=== PATIENT | male | born 1955 | race Caucasian/White ===

== ENCOUNTER 2020-12-11 00:56 | Day surgery (SDC) | payer OTHER, SELFPAY ==
[2020-11-30 15:02] VITALS: BMI 21.4
--- NOTE | 2020-12-08 14:28 | PM.HPGS ---
History of Present Illness History of Present Illness Consent: Risks, benefits, and alternatives have been discussed and questions answered. Patient agrees to proceed with procedure. Chief complaint: neoplasm screening Narrative: Obdulio Davenport is a 65 year old male Referred for colon cancer screening Review of Systems Review of Systems: All systems reviewed & are unremarkable except as noted in HPI and below PMFSH Past Medical History Medical History Hypercholesterolemia Family History Family History Father Hypertension Social History Social History Smoking status: Never smoker Alcohol intake: current Drinks per week: 6 Alcohol use details: BEER Living arrangements: with family Spiritual care concerns: No Meds Home Medications and Allergies Home Medications Medication Instructions Recorded Confirmed Type No Home Medications 03/03/19 12/11/20 History Allergies Allergy/AdvReac Type Severity Reaction Status Date / Time No Known Allergies Allergy Unknown Verified 12/11/20 07:42 Exam Resp: Auscultation: clear to auscultation bilaterally Cardio: Rate: regular rate Rhythm: regular rhythm GI: GI Palp: Yes Soft to palpation and No Tenderness to palpation present (GI) Assessment and Plan Assessment and plan (1) Colon cancer screening: Code(s): Z12.11 - Encounter for screening for malignant neoplasm of colon Status: Acute Assessment and Plan: Colonoscopy with possible biopsy or polypectomy or cautery or injection of substances.
--- NOTE | 2020-12-11 07:24 | WPDANESEPPF ---
Anes - Initial Pre Proc Eval Procedure: Operation Date: 12/11/20 08:30 Proposed Procedures p Screening Colonoscopy - Bishop Sepulveda MD Date/Time: 12/11/20 07:24 Surgeon: Bishop Sepulveda MD Pre Op Diagnosis: neoplasm screening Patient Data Age: 65 Gender: M Height: 1.78 m Weight: 68 kg Allergies Allergy/AdvReac Type Severity Reaction Status Date / Time No Known Allergies Allergy Unknown Verified 12/11/20 07:42 Home Medications Medication Instructions Recorded Confirmed Type No Home Medications 03/03/19 12/11/20 History Patient hx anesthesia problems: none Family hx anesthesia problems: none PMFSH Past Medical History Medical History (Updated 12/11/20 @ 07:24 by Seven Cuenca MD) Hypercholesterolemia Family History Family History Father Hypertension Social History Social History Smoking status: Never smoker Alcohol intake: current Drinks per week: 6 Alcohol use details: BEER Living arrangements: with family Spiritual care concerns: No Anes - Eval Final PreProcedure Day of Procedure 12/11/20 07:24 Patient weight: normal Heart: regular rate and rhythm Lungs: clear to auscultation and normal air movement Airway: Mallampati scale class II Neurological: alert and oriented Last oral intake: >/= 8 hours ASA classification: II Emergent: no Anesthetic plan: proceed Anesthesia type and monitoring: general GIVS Informed Consent: The patient's anesthetic plan and its attendant risks and benefits were discussed with the patient/family/POA. Questions were solicited and answers provided to the satisfaction of the patient/family/POA.
[2020-12-11 07:43] VITALS: BP 147/80; PULSE 63; RESP 14; TEMP 36.4; O2SAT 100; BMI 21.3
[2020-12-11] MEDS: LACTATED RINGERS 1,000 ML 150 ML IV CONT (07:47)
[2020-12-11 08:38] VITALS: BP 101/69; PULSE 70; RESP 16; O2SAT 100
[2020-12-11 08:48] VITALS: BP 113/74; PULSE 59; RESP 18; O2SAT 100
[2020-12-11 08:58] VITALS: BP 129/79; PULSE 60; RESP 18; O2SAT 100
[2020-12-11 09:08] VITALS: BP 136/85; PULSE 55
== END 2020-12-11 09:18 | disposition home or self-care (01) ==
PROVIDERS: PCP Internal Medicine; Visit Provider Internal Medicine Gastroenterology
PROC: 0DJD8ZZ Inspection of Lower Intestinal Tract, Via Natural or Artificial Opening Endoscopic (ICD-10-PCS; CPT 45378; principal; 2020-12-11 08:30)
DX: Z12.11 Encounter for screening for malignant neoplasm of colon (principal); E78.00 Pure hypercholesterolemia, unspecified
CPT/HCPCS: 45378; J2704; J7120

== ENCOUNTER 2022-05-28 09:33 | Outpatient (CLI) | payer OTHER, SELFPAY ==
--- NOTE | ~2022-05-28 | US_ITS ---
EXAMINATION: US thyroid DATE: 05/28/2022 10:13 INDICATION: Iodine deficiency related diffuse goiter. TECHNIQUE: Multiple ultrasound images of the thyroid were obtained. COMPARISON: None. FINDINGS: The right thyroid lobe measures 5.5 x 2.3 x 1.9 cm. The left thyroid lobe measures 4.5 x 1.8 x 2.0 c m. There is normal echotexture and echogenicity throughout the thyroid gland. No discrete nodules id entified. Normal vascular flow is present. IMPRESSION: 1. Normal thyroid. Reviewed, dictated and finalized at location A. Y VENDOR IMPRESSION: 1. Normal thyroid.
== END 2022-05-28 09:34 | disposition home or self-care (01) ==
PROVIDERS: PCP Internal Medicine; Visit Provider Internal Medicine
DX: E01.0 Iodine-deficiency related diffuse (endemic) goiter (principal)
CPT/HCPCS: 76536

== ENCOUNTER 2022-06-19 01:03 | Day surgery (SDC) | payer OTHER, SELFPAY ==
[2022-06-05 15:14] VITALS: BMI 21.2
--- NOTE | 2022-06-18 15:48 | PM.HPGS ---
History of Present Illness History of Present Illness Consent: Risks, benefits, and alternatives have been discussed and questions answered. Patient agrees to proceed with procedure. Chief complaint: dysphagia Narrative: Obdulio Davenport is a 66 year old male who has had difficulty swallowing solid food for the last 2 months. Mostly solid food seems to get caught in the back of his throat. Sometimes he can expect radiated in bring it out. He does not have difficulty with liquids. He does not have acid reflux symptoms. Review of Systems Review of Systems: All systems reviewed & are unremarkable except as noted in HPI and below PMFSH Past Medical History Medical History Hypercholesterolemia Family History Family History Father Hypertension Social History Social History Smoking status: Never smoker Alcohol intake: current Drinks per week: 6 Alcohol use details: BEER Substance use type: does not use Lack of Transportation: No Lack of Food: Never True Current Housing: I Have Housing Concerned About Future Housing: No Difficulty Paying Gas/Electric Bills: No Difficulty Paying for Meds: No Currently Unemployed: No Education: Master's Degree or Higher Difficulty w/ Childcare or Family Care: No Living arrangements: with family Spiritual care concerns: No Meds Home Medications and Allergies Home Medications Medication Instructions Recorded Confirmed Type multivitamin 1 tablet PO DAILY 06/05/22 06/19/22 History Allergies Allergy/AdvReac Type Severity Reaction Status Date / Time No Known Allergies Allergy Unknown Verified 06/19/22 09:30 Exam Const: General: alert Orientation/consciousness: patient oriented x3 Resp: Auscultation: clear to auscultation bilaterally Cardio: Rhythm: regular rhythm GI: GI Palp: Yes Soft to palpation and No Tenderness to palpation present (GI) Neuro: General: patient oriented x3 Assessment and Plan Assessment and plan (1) Dysphagia: Code(s): R13.10 - Dysphagia, unspecified Status: Acute Assessment and Plan: EGD with possible biopsy or dilatation or cautery.
[2022-06-19 09:31] VITALS: BP 119/70; PULSE 65; RESP 18; TEMP 36.4; O2SAT 99
[2022-06-19] MEDS: LACTATED RINGERS 1,000 ML 150 ML IV CONT (09:33)
--- NOTE | 2022-06-19 10:22 | P.PNAN_ITS ---
Anes - Initial Pre Proc Eval Procedure: Operation Date: 06/19/22 11:00 Proposed Procedures p Esophagogastroduodenoscopy - Bishop Sepulveda MD Date/Time: 06/19/22 10:22 Surgeon: Bishop Sepulveda MD Pre Op Diagnosis: dysphagia Patient Data Age: 66 Gender: M Height: 1.79 m Weight: 70 kg Last Vital Signs Temp 97.5 F L 06/19/22 09:31 Pulse 65 06/19/22 09:31 Resp 18 06/19/22 09:31 BP 119/70 06/19/22 09:31 Pulse Ox 99 06/19/22 09:31 O2 Del Method Room Air 06/19/22 09:31 Allergies Allergy/AdvReac Type Severity Reaction Status Date / Time No Known Allergies Allergy Unknown Verified 06/19/22 09:30 Home Medications Medication Instructions Recorded Confirmed Type multivitamin 1 tablet PO DAILY 06/05/22 06/19/22 History Patient hx anesthesia problems: none Family hx anesthesia problems: none Results Review: All pre-operative results and documents have been reviewed as part of the pre- operative evaluation. [facility] Past Medical History Medical History Hypercholesterolemia Family History Family History Father Hypertension Social History Social History (Updated 05/21/22 @ 10:16 by Duy Masters MA) Smoking status: Never smoker Alcohol intake: current Drinks per week: 6 Alcohol use details: BEER Substance use type: does not use Lack of Transportation: No Lack of Food: Never True Current Housing: I Have Housing Concerned About Future Housing: No Difficulty Paying Gas/Electric Bills: No Difficulty Paying for Meds: No Currently Unemployed: No Education: Master's Degree or Higher Difficulty w/ Childcare or Family Care: No Living arrangements: with family Spiritual care concerns: No Anes - Eval Final PreProcedure Day of Procedure 06/19/22 10:22 Patient weight: normal Heart: regular rate and rhythm Lungs: clear to auscultation Airway: Mallampati scale class II Neurological: alert and oriented Last oral intake: >/= 8 hours ASA classification: II Emergent: no Anesthetic plan: proceed Anesthesia type and monitoring: general GIVS and standard monitoring Results Review: All pre-operative results and documents have been reviewed as part of the pre- operative evaluation. Informed Consent: The patient's anesthetic plan and its attendant risks and benefits were di scussed with the patient/family/POA. Questions were solicited and answers provided to the satisfaction of the patient/family/POA.
[2022-06-19 10:36] VITALS: BP 90/58; PULSE 57; RESP 17; O2SAT 99
[2022-06-19 10:46] VITALS: BP 99/56; PULSE 56; RESP 17; O2SAT 99
[2022-06-19 10:56] VITALS: BP 101/60; PULSE 57; RESP 17; O2SAT 99
== END 2022-06-19 11:10 | disposition home or self-care (01) ==
PROVIDERS: PCP Internal Medicine; Visit Provider Internal Medicine Gastroenterology
PROC: 0DJ08ZZ Inspection of Upper Intestinal Tract, Via Natural or Artificial Opening Endoscopic (ICD-10-PCS; CPT 43235; principal; 2022-06-19 11:00)
DX: R13.10 Dysphagia, unspecified (principal); K29.70 Gastritis, unspecified, without bleeding
CPT/HCPCS: 43239; 87081; 88305; J2704; J7120

== ENCOUNTER 2022-08-30 08:53 | Outpatient (CLI) | payer OTHER, SELFPAY ==
--- NOTE | ~2022-08-30 | XR_ITS ---
EXAMINATION: XR barium swallow modified DATE: 08/30/2022 10:02 INDICATION: Diverticulum of esophagus, acquired. TECHNIQUE: The patient was given barium-containing material of multiple consistencies to swallow by t margarito speech pathologist while I performed fluoroscopy. Fluoroscopy exposure time was 1.3 minutes. The n umber of fluoroscopy images saved to the PACS was 1. Dose-area product was 0.824 Gy-cm^2. FINDINGS: There is reduced laryngeal elevation, reduced tongue base retraction, and vallecular residue. IMPRESSION: 1. No laryngeal penetration or aspiration. 2. Please refer to the speech therapy report for recommendations. Reviewed, dictated and finalized at location A.
--- NOTE | 2022-08-30 11:23 | REHSTMBS ---
Assessment and note entered by Sheree Porter, NEONATOLOGIST Modified Barium Swallow Evaluation Feeding Type Recommended Oral Food Consistency Regular, Level 7 Liquid Consistency Thin (0) Treatment Recommendations Effortful Swallow,Laryngeal Elevation Exerc,Tongue Base Exercise,Tongue ROM Exercise ST Clinical Summary MODIFIED BARIUM SWALLOW STUDY This patient was seen for a Modified Barium Swallow study at the request of his physician. Patient reports that solid foods tends to hang up at the top of (his) throat. He stated that he then has to regurgitate it and swallow again. Today the patient was viewed in the lateral position to the level of C5/C6. Patient was presented with thin liquid contrast medium per spoon and then cup/straw, pudding mixed with semi-solid contrast medium, and then fruit pieces and cracker coated with the semi-solid material. Given the thin liquid. he exhibited no significant observations however given the thicker consistencies, he exhibited significant vallecular residue after each swallow, causing him to have to swallow up to six swallows in order to clear the residue completely. This would support his claim of a feeling that material hangs up in the throat. Impairments include: Pharyngeal Stage: Reduced elevation contributing to pharyngeal residue and reduced base of tongue retraction contributing to significant vallecular residue. Patient was instructed in the use of several laryngeal elevation and base of tongue retraction exercises along with hard, effortful swallows and chin tuck/head flexion strategy to assist with movement of material through the pharynx. He voiced understanding of home exercise program. Thank you for this referral.
== END 2022-08-30 08:54 | disposition home or self-care (01) ==
PROVIDERS: PCP Internal Medicine; Visit Provider Otolaryngology
DX: K22.5 Diverticulum of esophagus, acquired (principal)
CPT/HCPCS: 92611

== ENCOUNTER 2023-09-15 15:07 | Outpatient (CLI) | payer MEDICARE, OTHER, SELFPAY ==
--- NOTE | ~2023-09-15 | CT_ITS ---
EXAMINATION: CT pelvis wo con DATE: 09/15/2023 15:27 INDICATION: Chronic pelvic pain TECHNIQUE: High resolution computed tomography (CT) of the pelvis was performed without intravenous c ontrast. Additional sagittal and coronal reconstructions were performed. Automated exposure control a nd iterative reconstruction technique were employed. The dose-length product was 294.65 mGy-cm. COMPARISON: None FINDINGS: 4 mm nonobstructing stone at a lower pole calyx of the right kidney. Additional 4 mm bladder stone in the dependent midline. Bilateral ureters are normal with no stones or hydroureter. Visual is portion s of the lower pole of the left kidney, the caudal right hepatic lobe and gallbladder fundus are unre markable. Visualized portion of the bowels including the appendix are normal. Prostatomegaly measurin g 5.9 x 3.9 cm in transaxial dimensions. No abscess, free intraperitoneal gas or fluid in the pelvis or visualized lower abdomen. No pathologically enlarged pelvic, inguinal or lower abdominal lymphaden opathy. Severe disc height loss with degenerative endplate changes at L5-S1. Mild disc height loss at L4-L5. Disc bulges at L4-5 and L5-S1 contributing to mild to moderate central canal stenosis at the former a nd mild central canal stenosis at the latter. There is moderate bilateral facet osteoarthritis of the disc bulges an endplate osteophytes at L5-S1 contributing to moderate bilateral neural foraminal moreno nosis at both L4-L5 and more prominently at L5-S1. Moderate bilateral sacroiliac and mild bilateral h ip osteoarthritis. IMPRESSION: 1. Nephrolithiasis with 4 mm stones at the bladder and lower pole calyx of the right kidney. 2. Prostatomegaly. 3. Degenerative skeletal changes in the lumbar spine and pelvis as detailed above. Reviewed, dictated and finalized at location A. IMPRESSION: 1. Nephrolithiasis with 4 mm stones at the bladder and lower pole calyx of the right kidney. 2. Prostatomegaly. 3. Degenerative skeletal changes in the lumbar spine and pelvis as detailed abo ve.
== END 2023-09-15 15:08 | disposition home or self-care (01) ==
LOC: ANHIMG 15:09
PROVIDERS: PCP Internal Medicine; Visit Provider Internal Medicine
DX: R10.2 Pelvic and perineal pain (principal); G89.29 Other chronic pain; N40.2 Nodular prostate without lower urinary tract symptoms; N20.0 Calculus of kidney; N21.0 Calculus in bladder; N40.0 Benign prostatic hyperplasia without lower urinary tract symptoms
CPT/HCPCS: 72192

== ENCOUNTER 2024-10-26 08:39 | Outpatient (CLI) | payer MEDICARE, SELFPAY ==
--- NOTE | ~2024-10-26 | CT_ITS ---
CT Scan of the Chest without Contrast: Clinical Indication: Nonspecific abnormal finding of lung field Technique: Contiguous sections were acquired throughout the chest without intravenous contrast. Dose reduction technique was used on this scan by utilizing automated exposure control and iterative recon struction technique. The dose-length product (DLP) was 185.01 mGy-cm. Findings: There is no evidence of any significant mediastinal, hilar or axillary lymphadenopathy. The mediastin al soft tissues appear normal. There is no evidence of pleural or pericardial effusion. 4 mm right lower lobe pulmonary nodule present (axial image 69). Calcified left upper lobe granuloma present. 6 mm left basilar pulmonary nodule present (axial image 123). Images through the upper abdomen reveal no abnormalities. Impression: 6 mm left lower lobe pulmonary nodule and 4 mm right lower lobe pulmonary nodule. According to Fleisc hner Society criteria, for a low-risk patient, follow-up exam in 6-12 months recommended, then consid er additional 18-[address] For a high-risk patient, follow-up CT scans at both 6-12 months and 18- 24 months are recommended. Reviewed, dictated and finalized at [facility]. Impression: 6 mm left lower lobe pulmonary nodule and 4 mm right lower lobe pulmonary nodul e. According to Fleischner Society criteria, for a low-risk patient, follow-up exam in 6-12 months recommended, then consider additional 18-[address] For a high-risk patient, follow-up CT scans at both 6-12 months and 18-24 months are recommended.
== END 2024-10-26 08:40 | disposition home or self-care (01) ==
LOC: MICIMG 08:39
PROVIDERS: PCP Internal Medicine; Visit Provider Internal Medicine
DX: R91.8 Other nonspecific abnormal finding of lung field (principal)
CPT/HCPCS: 71250

== ENCOUNTER 2024-12-08 12:41 | Outpatient (CLI) | payer MEDICARE, SELFPAY ==
--- OUTSIDE RECORDS SUMMARY | 2024-12-08 13:17 | XMS_ITS | Clinical Summary ---
Author Organization [facility] Address [address] [place] [address] Care Team Providers Care Flight Instructor Name Role Phone Dank Bull MD Primary Care Provider [phone] Allergies No known active allergies Medications No known medications Active Problems No known active problems Surgical History Surgery Date Site/Laterality Comments HERNIA REPAIR Medical History Medical History Date Comments Tinnitus Social History Tobacco Use Types Packs/Day Years Used Date Smoking Tobacco: Never Tobacco Cessation:Counseling Given: Not Answered AUDIT-C Answer Date Recorded Q1: How often do you have a drink containing alcohol? 4 or more times a week 12/09/2022 Average Number of Drinks Not on file 023 Frequency of Binge Drinking Not on file 11/29 Personal Safety Answer Date Recorded Getting School Help Needed Not on file 05/25 Sex and Gender Information Value Date Recorded Sex Assigned at Not on file Legal Sex Male 3:15 PM [employer] Gender Identity Male 12/08/2022 8:29 PM CDT Sexual Orientation Straight 12/08/2022 8: 29 PM CDT Obstetrics History Last Filed Vital Signs Vital Sign Reading Time Taken Comments Blood Pressure 169/80 10/09/2023 10:48 AM CDT Pulse 76 10/09/2023 10:48 AM CDT Temperature - - Respiratory Rate - - Oxygen Saturation - - Inhaled Oxygen Concentration - - Weight 70.3 kg (155 lb) 10/09/2023 10:48 AM CDT Height 177.8 cm (5' 10) 10/09/2023 10:48 AM CDT Body Mass Index 22.24 10/09/2023 10:48 AM CDT Plan of Treatment Health Maintenance Due Date Last Done Comments Colon Cancer Screening-Colonoscopy 1954 Depression Screening 1954 Fall Risk Assessment 1954 Hepatitis C Screening 1954 DTaP/Tdap/Td Vaccine (1 - Tdap) 1965 Hepatitis B Screening 1972 Pneumococcal vaccine 65+ (1 of 1 - PCV) 2004 Zoster Vaccine (1 of 2) 2004 Well Visit 65+ 12/07/2019 Covid-19 Vaccine (7 - 2023-2 5 season) 2023 07/31/2022, 12/21/2021, 07/19/2021, Additional history exists Influenza Vaccine (#1) 2024 Prostate Cancer Screening-PSA 10/12/2025 10/13/2023 Abdominal Aortic Aneurysm (A AA) Screen Completed 10/17/2023 Procedures Procedure Name Priority Date/Time Associated Diagnosis Comments CT ABDOMEN PELVIS WO CONTRAST Schedule Routine, Read Routine (OP Routine) 10/17/2023 11:57 AM CDT Kidney stone PSA SCREEN Routine 10/13/2023 9:23 AM CDT Elevated PSA from Last 3 Months or Most Recently Relevant to Health Maintenance Results * CT Abdomen Pelvis WO Contrast (10/17/2023 11:57 AM CDT) Anatomical Region Laterality Modality Body N/A Computed Tomogra phy 10/17/2023 12:1 1 PM CDT Impressions 10/17/2023 12:11 PM CDT 1. Previously seen urinary bladder stone no longer present. 2. Nonobstructing bilateral renal stones. 3. Indeterminate left lower lobe pulmonary nodules. Electronically signed by: Aryan Gallo M.D. Narrative 10/17/2023 12:11 PM CDT EXAMINATION: Computed tomography of the abdomen and pelvis without intravenous contrast HISTORY: Nephrolithiasis TECHNIQUE: Transaxial computed tomographic images of the abdomen and pelvis were obtained without intravenous contrast according to the standard protocol. COMPARISON: Computed tomography examination of the pelvis 09/15/2023 [facility] FINDINGS: There is an indeterminant 6 mm nodule within the posterior left lung base on table position -1308.8. An additional 3.6 mm nodule also noted on slice position slightly more anteriorly within the left lung base. There is no pleural fluid. Heart size is normal. Liver, gallbladder, pancreas, spleen, both adrenal glands appear normal. There is a nonobstructing 5 mm stone within the lower pole of the right kidney. There is a 3.8 mm nonobstructing stone within the lower pole of the left kidney. Prostate is enlarged with mass effect on the bladder base. Previously seen stone within the urinary bladder is no longer present. Urinary bladder is decompressed. Bowel gas pattern is normal. There is no abdominal or pelvic lymphadenopathy or free pelvic fluid. Images obtained with bone window settings demonstrate multilevel degenerative changes throughout the spine. There are no suspicious osseous abnormalities. Procedure Note Aryan Gallo MD - 10/17/2023 EXAMINATION: Computed tomography of the abdomen and pelvis without intravenous contrast HISTORY: Nephrolithiasis TECHNIQUE: Transaxial computed tomographic images of the abdomen and pelvis were obtained without intravenous contrast according to the standard protocol. COMPARISON: Computed tomography examination of the pelvis 09/15/2023 [facility] FINDINGS: There is an indeterminant 6 mm nodule within the posterior left lung base on table position -1308.8. An additional 3.6 mm nodule also noted on slice position slightly more anteriorly within the left lung base. There is no pleural fluid. Heart size is normal. Liver, gallbladder, pancreas, spleen, both adrenal glands appear normal. There is a nonobstructing 5 mm stone within the lower pole of the right kidney. There is a 3.8 mm nonobstructing stone within the lower pole of the left kidney. Prostate is enlarged with mass effect on the bladder base. Previously seen stone within the urinary bladder is no longer present. Urinary bladder is decompressed. Bowel gas pattern is normal. There is no abdominal or pelvic lymphadenopathy or free pelvic fluid. Images obtained with bone window settings demonstrate multilevel degenerative changes throughout the spine. There are no suspicious osseous abnormalities. IMPRESSION: 1. Previously seen urinary bladder stone no longer present. 2. Nonobstructing bilateral renal stones. 3. Indeterminate left lower lobe pulmonary nodules. Electronically signed by: Aryan Gallo M.D. Rere Garcia NP IMG CT PROCEDURES Final Result * PSA screen (10/13/2023 9:23 AM CDT) PSA 3.30 < OR = 4.00 ng/mL [facility] Comment: The total PSA value from this assay system is standardized against the WHO standard. The test result will be approximately 20% lower when compared to the equimolar-standardized total PSA (April Areli). Comparison of serial PSA results should be interpreted with this fact in mind. This test was performed using the Siemens chemiluminescent method. Values obtained from different assay methods cannot be used interchangeably. PSA levels, regardless of value, should not be interpreted as absolute evidence of the presence or absence of disease. Blood 10/13/2023 9:23 AM CDT 10/13/2023 9:24 AM CDT Narrative [facility] - 10/14/2023 7:01 AM CDT FASTING:YES FASTING: YES Rere Garcia SENIOR [employer] PROGRAMMER LAB BLOOD ORDERABLES [facility] al Result [facility] [address] [address] [facility] [place] [address] from Last 3 Months or Most Recently Relevant to Health Maintenance Insurance [facility] [id number] MEDICARE MEDICARE [facility] [id number] Care Teams Flight Instructor Relationship Specialty Start Date End Date Dank Bull MD [address] [facility] [address] [place] [address] PCP - General Internal Medicine 11/04/22
== END 2024-12-08 12:42 | disposition home or self-care (01) ==
LOC: ANHAUDASC 12:41
PROVIDERS: PCP Internal Medicine; Visit Provider Internal Medicine
DX: H91.90 Unspecified hearing loss, unspecified ear (principal); H61.23 Impacted cerumen, bilateral; H93.13 Tinnitus, bilateral; H90.3 Sensorineural hearing loss, bilateral; Z82.2 Family history of deafness and hearing loss
CPT/HCPCS: 92557; 92567